=== PATIENT | male | born 1955 | race Caucasian/White ===

== ENCOUNTER → 2020-01-08 | Outpatient (CLI) | payer OTHER ==
[2020-01-08 09:39] LABS: ABSOLUTE NEUTROPHILS 2.5 thou/uL (1.4-8.2); BASOPHILS 0.6 % (0.0-2.0); EOSINOPHILS 2.4 % (0.0-3.0); HEMATOCRIT 43.4 % (42.0-52.0); HEMOGLOBIN 14.3 gm/dL (14.0-18.0); LYMPHOCYTES 24.6 % (24.0-44.0); MCV 87.9 fL (80.0-100.0); MONOCYTES 10.9 % (1.0-8.0); POLYS 61.5 % (36.0-66.0); RBC 4.94 mil/uL (4.50-6.00)
[2020-01-08 10:28] LABS: ALBUMIN 3.9 g/dL (3.4-5.0); CALCIUM 8.7 mg/dL (8.5-10.1); POTASSIUM 4.4 mmol/L (3.5-5.1); TOTAL BILIRUBIN 0.3 mg/dL (0.2-1.0); TOTAL PROTEIN 6.6 g/dL (6.4-8.2)
[2020-01-08 11:06] LABS: PLATELET COUNT 70 thou/uL (150-400)
== END ==
LOC: LABMALL 06:14
PROVIDERS: ATTEND Family Medicine
DX: R97.20 Elevated prostate specific antigen [PSA] (principal); D69.6 Thrombocytopenia, unspecified

== ENCOUNTER → 2020-09-01 | Outpatient (CLI) | payer OTHER ==
[2020-09-01 10:08] LABS: ABSOLUTE NEUTROPHILS 3.5 thou/uL (1.4-8.2); BASOPHILS 0.5 % (0.0-2.0); HEMATOCRIT 44.4 % (42.0-52.0); HEMOGLOBIN 14.6 gm/dL (14.0-18.0); MCH 28.8 pg (26.0-34.0); MCHC 32.8 g/dL (28.0-37.0); MCV 87.9 fL (80.0-100.0); MONOCYTES 9.8 % (1.0-8.0); PLATELET COUNT 107 thou/uL (150-400); POLYS 65.7 % (36.0-66.0); RBC 5.06 mil/uL (4.50-6.00); RDW 13.9 % (10.5-14.5); WBC 5.4 thou/uL (4.0-11.0)
[2020-09-01 10:21] LABS: ALBUMIN 4.1 g/dL (3.4-5.0); ANION GAP 7 mmol/L (7-16); BUN 22 mg/dL (7-18); CHLORIDE 103 mmol/L (98-107); CHOLESTEROL 158 mg/dL (<200); CO2 28 mmol/L (21-32); CREATININE 1.2 mg/dL (0.7-1.3); GLUCOSE 95 mg/dL (74-106); HDL CHOLESTEROL 57 mg/dL (>40); LDL CHOLESTEROL 88 mg/dL (<100); POTASSIUM 4.6 mmol/L (3.5-5.1); SGOT 27 U/L (15-37); SGPT 41 U/L (30-65); SODIUM 138 mmol/L (136-145); TC:HDL 2.8 Ratio (Not establshd); TOTAL BILIRUBIN 0.7 mg/dL (0.2-1.0); TOTAL PROTEIN 7.2 g/dL (6.4-8.2); TRIGLYCERIDE 67 mg/dL (<150); VLDL 13 mg/dL (<40)
[2020-09-01 13:07] LABS: PSA 4.2 ng/mL (0.0-4.0); TESTOSTERONE* 550 ng/dL (264-916)
== END ==
LOC: LAB 08:59
PROVIDERS: ATTEND Family Medicine
DX: E78.00 Pure hypercholesterolemia, unspecified (principal); I10 Essential (primary) hypertension; R97.20 Elevated prostate specific antigen [PSA]; E34.9 Endocrine disorder, unspecified

== ENCOUNTER → 2021-03-03 | Outpatient (CLI) | payer OTHER | LOC: LAB 12:33 | PROVIDERS: ATTEND Family Medicine | DX: R97.20 Elevated prostate specific antigen [PSA] (principal) ==